=== PATIENT | male | born 1985 | race Two or more races ===

== ENCOUNTER 2017-09-07 18:34 | Emergency (ER) | payer OTHER ==
[2017-09-07] MEDS ORDERED: Sodium Chloride 0.9% 10 ML Syringe FLUSH PRN ×2 (18:41→18:59)
[2017-09-07] MEDS ORDERED: Iopamidol 612 MG/ML 150 ML Bottle IVPUSH ONE (18:59)
--- NOTE | 2017-09-07 20:00 | CT ---
Head CT Technique: Multiple axial sections of the brain were obtained. Intravenous contrast was not utilized. Comparison: No previous intracranial imaging. Findings: Ventricles along with basal cisterns and sulci over the convexities are within normal limits for the patient's age. No abnormal parenchymal densities are seen. No evidence of intracranial hemorrhage. No midline shift or mass effect is seen. Bone window settings were reviewed which shows no acute calvarial abnormality. Visualized sinuses are clear. Impression: 1. Nothing acute is identified on noncontrast head CT exam. Diagnostic code #1
--- NOTE | 2017-09-07 20:02 | CT ---
CT cervical spine Technique: Multiple axial sections were obtained from above C1 inferiorly to the bottom of T1. Reconstructed sagittal and coronal images were reviewed. Findings: Mild disc space narrowing is noted at C3-C4, C4-C5 and C5-C6. Slight posterior osteophytes are noted at C4-C5 and more prominently C5-C6 and C6-C7. Anterior osteophytes are noted at C4-C5 with detached bony density seen at C4-C5 which is felt to be old. Bony density is seen off the tip of the spinous process of C7 most likely due to old ununited avulsion fracture. No acute fracture is seen. Minimal left-sided neural foraminal stenosis noted at C6-C7. Other neural foramina appear to be patent. No abnormal subluxation is seen. Impression: 1. Incidental findings. Nothing acute is appreciated on CT study of the cervical spine. Diagnostic code #2
--- NOTE | 2017-09-07 20:07 | CT ---
CT lumbar spine Technique: Multiple axial sections through the lumbar spine were obtained. Reconstructed coronal and sagittal images were obtained. Comparison: No prior lumbar spine imaging is available. Findings: Vertebral body heights and disc spaces are maintained. No fracture is identified. No abnormal subluxation is seen. No traumatic disc herniation is seen. Impression: 1. No acute abnormality is identified on CT study of the lumbar spine. Diagnostic code #1
--- NOTE | 2017-09-07 20:07 | CT ---
CT chest Technique: Multiple axial sections through the chest were obtained. Intravenous contrast was utilized. Comparison: No previous chest imaging. Findings: Mediastinum and hilar regions appear within normal limits. No pericardial thickening is seen. Lungs are clear. No pulmonary contusion, pleural effusion or pneumothorax is seen. Bone window settings shows a nondisplaced fracture within the right 12th rib posteriorly as well as the right 11th rib posteriorly. Impression: 1. Nondisplaced fractures within the right 11th and 12th ribs. 2. No additional abnormality seen on CT study of the chest. Diagnostic code #3 CT abdomen and pelvis Technique: Multiple axial sections were obtained from above the dome of the diaphragm inferiorly through the pubic symphysis. Intravenous contrast was utilized. No oral contrast has been given. Delayed images were obtained through the bladder. Comparison: No previous abdominal imaging. Findings: Liver shows no focal parenchymal abnormality. Spleen appears within normal limits. Adrenal glands show no nodule. Pancreas appears within normal limits. Kidneys show symmetric contrast enhancement without hydronephrosis or mass. Aorta appears within normal limits. No aneurysm is seen. No retroperitoneal adenopathy or mesenteric abnormalities are seen. No pelvic mass or adenopathy is seen. Delayed images shows contrast within the distal ureters and within the bladder. Bone window settings were reviewed which shows no acute osseous abnormality. Impression: 1. No abnormality is identified on CT study of the abdomen and pelvis. Diagnostic code #1
--- NOTE | 2017-09-07 20:14 | EDM.PDOC ---
ED HPI GENERAL MEDICAL PROBLEM - General Chief Complaint: Trauma Stated Complaint: FALL Time Seen by Provider: 09/07/17 18:35 Source of Information: Reports: Patient History Limitations: Reports: No Limitations - History of Present Illness INITIAL COMMENTS - FREE TEXT/NARRATIVE: 31-year-old male presents via private vehicle for evaluation and treatment of injuries sustained from a fall. Patient reports he was at work. He states that he was on a platform that was welded. Sounds like the welds gave out and he fell approximately 8 feet. Unsure exactly how he landed. He believes he may landed on his shoulders. He states he did not lose consciousness. Currently complaining of pain to the right lower back and right side of his chest. Denies any syncope, headaches, neck pain, nausea, vomiting, chest pain, shortness breath, abdominal pain, pain in the extremities or difficulty ambulate. Patient reports he did ambulate after the fall but due to discomfort in his low back he has been trying to limit ambulation. Patient reports he was wearing a harness at the time of a fall. Fall occurred around 1730 this evening. Upon arrival to the ER trauma alert was called. Patient declines any pain medication. Onset: Today Treatments ROUGH ROUNDER MACHINE: Reports: Other (see below) Other Treatments ROUGH ROUNDER MACHINE: advil x 2 after fall Hip Pain Score (Numeric/FACES): 6 - Related Data Allergies Allergy/AdvReac Type Severity Reaction Status Date / Time No Known Allergies Allergy Verified 09/07/17 18:44 Home Meds: Home Meds Acetaminophen/oxyCODONE [Percocet 325-5 MG] 1 each PO Q4HR PRN #20 tab 09/07/17 [Rx] Past Medical History - Past Health History Medical/Surgical History: Denies Medical/Surgical History Musculoskeletal History: Reports: Other (See Below) Other Musculoskeletal History: left ACL replacement;fractured left tib/fib with surgery Social & Family History - Tobacco Use Smoking Status *Q: Never Smoker Review of Systems - Review of Systems Review Of Systems: See Below Eyes: Denies: Vision Change Nose: Denies: Epistaxis Mouth/Throat: Denies: Loose Teeth Respiratory: Denies: Shortness of Breath Cardiovascular: Denies: Chest Pain GI/Abdominal: Denies: Abdominal Pain, Nausea, Vomiting Musculoskeletal: Reports: Back Pain (right lower and right mid to lateral back) . Denies: Neck Pain, Arm Pain, Leg Pain Skin: Denies: Bruising (no new brusing), Wound Neurological: Reports: Difficulty Walking (due to low back pain). Denies: Headache, Syncope ED EXAM, GENERAL - Physical Exam Exam: See Below Exam Limited By: No Limitations General Appearance: Alert, WD/WN, No Apparent Distress Eye Exam: Bilateral Eye: Normal Inspection, PERRL Ears: Normal External Exam Nose: Normal Inspection, No Blood Throat/Mouth: Normal Inspection, Normal Lips, Normal Voice, No Airway Compromise Head: Atraumatic, Normocephalic Neck: Normal Inspection, Supple, Non-Tender, Full Range of Motion Respiratory/Chest: No Respiratory Distress, Lungs Clear, Normal Breath Sounds, Other (tenderness to the right posterior lateral chest around ribs 10-12) Cardiovascular: Normal Peripheral Pulses, Regular Rate, Rhythm, No Murmur Peripheral Pulses: 3+: Radial (L), Radial (R), Posterior Tibial (L), Posterior Tibial (R), Dorsalis Pedis (L), Dorsalis Pedis (R) GI/Abdominal: Normal Bowel Sounds, Soft, Non-Tender Back Exam: Normal Inspection, Paraspinal Tenderness (L4/L5). No: Vertebral Tenderness Extremities: Normal Inspection, Non-Tender Neurological: Alert, Oriented, Normal Cognition Psychiatric: Normal Affect, Normal Mood Skin Exam: Warm, Dry, Normal Color Course - Vital Signs Last Recorded V/S: Last Vital Signs Temp 37.1 C 09/07/17 19:16 Pulse 92 09/07/17 18:42 Resp 23 H 09/07/17 20:50 BP 152/87 H 09/07/17 20:50 Pulse Ox 97 09/07/17 20:50 - Orders/Labs/Meds Orders: Active Orders 24 hr Category Date Time Status Peripheral IV Care [RC] . DIRECTED Care 09/07/17 18:43 Ordered Peripheral IV Insertion Adult [OM.PC] Routine Oth 09/07/17 18:41 Ordered Labs: Laboratory Tests 09/07/17 09/07/17 09/07/17 Range/Units 19:06 19:06 20:31 WBC 13.25 H (4.23-9.07) K/mm3 RBC 4.72 (4.63-6.08) M/mm3 Hgb 14.9 (13.7-17.5) gm/L Hct 42.9 (40.1-51.0) % MCV 90.9 (79.0-92.2) fl MCH 31.6 (25.7-32.2) pg MCHC 34.7 (32.2-35.5) g/dl RDW Std Deviation 41.9 (35.1-43.9) fL Plt Count 230 (163-337) K/mm3 MPV 9.3 L (9.4-12.3) fl Neut % (Auto) 73.9 H (34.0-67.9) % Lymph % (Auto) 16.8 L (21.8-53.1) % [place] % (Auto) 8.4 (5.3-12.2) % Eos % (Auto) 0.5 L (0.8-7.0) Baso % (Auto) 0.2 (0.1-1.2) % Neut # (Auto) 9.79 H (1.78-5.38) K/mm3 Lymph # (Auto) 2.23 (1.32-3.57) K/mm3 [place] # (Auto) 1.11 H (0.30-0.82) K/mm3 Eos # (Auto) 0.07 (0.04-0.54) K/mm3 Baso # (Auto) 0.02 (0.01-0.08) K/mm3 Sodium 142 (136-145) mEq/L Potassium 3.8 (3.5-5.1) mEq/L Chloride 107 (98-107) mEq/L Carbon Dioxide 22 (21-32) mEq/L Anion Gap 16.8 H (5-15) BUN 22 H (7-18) mg/dL Creatinine 1.3 (0.7-1.3) mg/dL Est Cr Clr Drug Dosing 89.30 mL/min Estimated GFR (MDRD) > 60 (>60) mL/min BUN/Creatinine Ratio 16.9 (14-18) Glucose 81 (74-106) mg/dL Calcium 9.3 (8.5-10.1) mg/dL Total Bilirubin 0.5 (0.2-1.0) mg/dL AST 39 H (15-37) U/L ALT 51 (16-63) U/L Alkaline Phosphatase 63 (46-116) U/L Total Protein 7.8 (6.4-8.2) g/dl Albumin 4.4 (3.4-5.0) g/dl Globulin 3.4 gm/dL Albumin/Globulin Ratio 1.3 (1-2) Lipase 162 (73-393) U/L Urine Color Yellow (Yellow) Urine Appearance Clear (Clear) Urine pH 6.5 (5.0-8.0) Ur Specific [place] 1.015 (1.005-1.030) Urine Protein Negative (Negative) Urine Glucose (UA) Negative (Negative) Urine Ketones 2+ H (Negative) Urine Occult Blood Trace-intact H (Negative) Urine Nitrite Negative (Negative) Urine Bilirubin Negative (Negative) Urine Urobilinogen 2.0 H (0.2-1.0) Ur Leukocyte Esterase Negative (Negative) Urine RBC 0-5 (0-5) /hpf Urine WBC 0-5 (0-5) /hpf Ur Epithelial Cells Not seen (0-5) /hpf Urine Bacteria Occasional (FEW) /hpf Urine Mucus Not seen (FEW) /hpf Meds: Medications Discontinued Medications Generic Name Dose Route Start Last Admin Trade Name Freq PRN Reason Stop Dose Admin Iopamidol 150 ml 09/07/17 18:59 09/07/17 19:27 Isovue-300 (61%) IVPUSH 09/07/17 19:00 150 ml ONETIME ONE Administration Sodium Chloride 10 ml 09/07/17 18:41 09/07/17 19:17 Saline Flush FLUSH 10 ml ASDIRECTED PRN Administration Keep Vein Open Sodium Chloride 10 ml 09/07/17 18:59 09/07/17 19:27 Saline Flush FLUSH 10 ml ONETIME PRN Administration IV FLUSH - Radiology Interpretation Free Text/Narrative:: Head CT Technique: Multiple axial sections of the brain were obtained. Intravenous contrast was not utilized. Comparison: No previous intracranial imaging. Findings: Ventricles along with basal cisterns and sulci over the convexities are within normal limits for the patient's age. No abnormal parenchymal densities are seen. No evidence of intracranial hemorrhage. No midline shift or mass effect is seen. Bone window settings were reviewed which shows no acute calvarial abnormality. Visualized sinuses are clear. Impression: 1. Nothing acute is identified on noncontrast head CT exam. CT cervical spine Technique: Multiple axial sections were obtained from above C1 inferiorly to the bottom of T1. Reconstructed sagittal and coronal images were reviewed. Findings: Mild disc space narrowing is noted at C3-C4, C4-C5 and C5-C6. Slight posterior osteophytes are noted at C4-C5 and more prominently C5-C6 and C6-C7. Anterior osteophytes are noted at C4-C5 with detached bony density seen at C4- C5 which is felt to be old. Bony density is seen off the tip of the spinous process of C7 most likely due to old ununited avulsion fracture. No acute fracture is seen. Minimal left-sided neural foraminal stenosis noted at C6-C7. Other neural foramina appear to be patent. No abnormal subluxation is seen. Impression: 1. Incidental findings. Nothing acute is appreciated on CT study of the cervical spine. CT lumbar spine Technique: Multiple axial sections through the lumbar spine were obtained. Reconstructed coronal and sagittal images were obtained. Comparison: No prior lumbar spine imaging is available. Findings: Vertebral body heights and disc spaces are maintained. No fracture is identified. No abnormal subluxation is seen. No traumatic disc herniation is seen. Impression: 1. No acute abnormality is identified on CT study of the lumbar spine. CT chest Technique: Multiple axial sections through the chest were obtained. Intravenous contrast was utilized. Comparison: No previous chest imaging. Findings: Mediastinum and hilar regions appear within normal limits. No pericardial thickening is seen. Lungs are clear. No pulmonary contusion, pleural effusion or pneumothorax is seen. Bone window settings shows a nondisplaced fracture within the right 12th rib posteriorly as well as the right 11th rib posteriorly. Impression: 1. Nondisplaced fractures within the right 11th and 12th ribs. 2. No additional abnormality seen on CT study of the chest. CT abdomen and pelvis Technique: Multiple axial sections were obtained from above the dome of the diaphragm inferiorly through the pubic symphysis. Intravenous contrast was utilized. No oral contrast has been given. Delayed images were obtained through the bladder. Comparison: No previous abdominal imaging. Findings: Liver shows no focal parenchymal abnormality. Spleen appears within normal limits. Adrenal glands show no nodule. Pancreas appears within normal limits. Kidneys show symmetric contrast enhancement without hydronephrosis or mass. Aorta appears within normal limits. No aneurysm is seen. No retroperitoneal adenopathy or mesenteric abnormalities are seen. No pelvic mass or adenopathy is seen. Delayed images shows contrast within the distal ureters and within the bladder. Bone window settings were reviewed which shows no acute osseous abnormality. Impression: 1. No abnormality is identified on CT study of the abdomen and pelvis. - Re-Assessments/Exams Free Text/Narrative Re-Assessment/Exam: 09/07/17 20:44 Patient was seen by Dr. Samuel within 20 minutes of arrival in the ER. Seen around 18:45. Agrees with work-up. At this time I reviewed the labs and imaging results the patient. I will get him Percocet for pain. Off work 1 week to allow the fractures to heal. Follow-up with [facility] in 1-2 weeks. Discharge instructions as documented. Departure - Departure Time of Disposition: 20:44 Disposition: Home, Self-Care 01 Condition: Fair (rib fractures) Clinical Impression: Closed rib fracture Qualifiers: Encounter type: initial encounter Rib fracture type: multiple ribs Laterality: right Qualified Code(s): S22.41XA - Multiple fractures of ribs, right side, initial encounter for closed fracture - Discharge Information Prescriptions: Acetaminophen/oxyCODONE [Percocet 325-5 MG] 1 each PO Q4HR PRN #20 tab PRN Reason: Pain Instructions: Rib Fracture, [id number] Referrals: Jorge Arrington MD [Physician] - Forms: ED Department Discharge Additional Instructions: May use ice or heat to the sore area for symptom relief. [id number] Tylenol or Motrin as needed for pain. Percocet 1-2 tabs every 4 -6 hours as needed for pain. Percocet can be habit-forming, recommend using as few of these as needed to control your pain. Do not drive or operate machinery within 12 hours of taking the Percocet. Do not take more than 3200 mg of ibuprofen from all sources one day. Do not take more than 4 g of Tylenol from all sources in 1 day. Follow-up with occupational health in 1-2 weeks for a recheck of your symptoms. See Dr. Arrington. Call [phone] to schedule an appointment with him. No work 1 week. May return to light duty next week as long as you're not requiring pain medication. Please return to the ER if your symptoms change or worsen. - My Orders Last 24 Hours: My Active Orders 09/07/17 18:41 Peripheral IV Insertion Adult [OM.PC] Routine 09/07/17 18:43 Peripheral IV Care [RC] . DIRECTED - Assessment/Plan Last 24 Hours: My Active Orders 09/07/17 18:41 Peripheral IV Insertion Adult [OM.PC] Routine 09/07/17 18:43 Peripheral IV Care [RC] . DIRECTED
== END 2017-09-07 21:00 | disposition home or self-care (01) ==
LOC: JD.ED 18:34
DX: S22.41XA Multiple fractures of ribs, right side, initial encounter for closed fracture (principal); W17.89XA Other fall from one level to another, initial encounter; Y99.0 Civilian activity done for income or pay
CPT/HCPCS: 36415; 70450; 71260; 72125; 72131; 74177; 80053; 81001; 83690; 85025; 99284; J7050; Q9967